=== PATIENT | male | born 1950 | race Caucasian/White ===

== ENCOUNTER 2020-06-01 05:40 | Day surgery (SDC) | payer MEDICARE ==
[~2020-06-01] VITALS: Ht 177.8 cm; Wt 65.0 kg
[2020-06-01 06:08] VITALS: BP 118/76
[2020-06-01] MEDS ORDERED: CHLORHEXIDINE 15 ML UDC MM STA (06:10)
[2020-06-01] MEDS ORDERED: LACTATED RINGERS 1,000 ML IV SCH (06:11)
[2020-06-01] MEDS ORDERED: CHLORHEXIDINE 15 ML UDC ONE (06:16)
[2020-06-01] MEDS ORDERED: NO MEDS (06:33)
[2020-06-01] MEDS ORDERED: LIDOCAINE 1%, 20ML ONE (06:49)
[2020-06-01] MEDS ORDERED: BUPIVACAINE/PF 0.5% ONE ×2 (06:49→06:52)
[2020-06-01] MEDS ORDERED: MIDAZOLAM 1 MG/ML, 2ML ONE (07:22)
[2020-06-01] MEDS ORDERED: FENTANYL PF 100 MCG/2ML ONE (07:22)
[2020-06-01] MEDS ORDERED: ONDANSETRON 2MG/ML, 2ML ONE (07:40)
[2020-06-01] MEDS ORDERED: KETOROLAC 30 MG/1 ML ONE (07:40)
[2020-06-01] MEDS ORDERED: LIDOCAINE-MPF 2% ,5ML ONE (07:40)
[2020-06-01] MEDS ORDERED: DEXAMETHASONE 4 MG/ML, 1ML ONE (07:40)
[2020-06-01] MEDS ORDERED: CEFAZOLIN 1,000 MG ONE (07:40)
[2020-06-01] MEDS ORDERED: PROPOFOL 10 MG/ML, 20ML ONE (07:40)
[2020-06-01] MEDS ORDERED: MIDAZOLAM 1 MG/ML, 2ML IV PRN (08:00)
[2020-06-01] MEDS ORDERED: ALBUTEROL SULFATE 2.5 MG/3 ML NPPB PRN (08:00)
[2020-06-01] MEDS ORDERED: FENTANYL PF 100 MCG/2ML IV PRN (08:00)
[2020-06-01] MEDS ORDERED: PROMETHAZINE 25 MG/ML, 1ML IVPush PRN (08:00)
[2020-06-01] MEDS ORDERED: ACETAMINOPHEN 325 MG TABLET PO PRN (08:00)
[2020-06-01] MEDS ORDERED: MEPERIDINE/PF 25MG/0.5ML IVPush PRN (08:00)
[2020-06-01] MEDS ORDERED: hydrALAzine 20 MG/ML, 1ML IV PRN (08:00)
[2020-06-01] MEDS ORDERED: LABETALOL 5MG/ML, 20ML IV PRN (08:00)
[2020-06-01] MEDS ORDERED: OXYcodone 5 MG/5 ML ORAL.SOL UDC PO PRN (08:00)
== END 2020-06-01 09:15 | disposition home or self-care (01) ==
LOC: OUT 05:40
PROVIDERS: ATTEND Surgery Surgery of the Hand
DX: M67.432 Ganglion, left wrist (principal); G97.49 Accidental puncture and laceration of other nervous system organ or structure during other procedure; F17.210 Nicotine dependence, cigarettes, uncomplicated; Z79.1 Long term (current) use of non-steroidal anti-inflammatories (NSAID); Z79.899 Other long term (current) drug therapy; Z85.828 Personal history of other malignant neoplasm of skin; Z88.0 Allergy status to penicillin; Z88.5 Allergy status to narcotic agent; Y83.8 Other surgical procedures as the cause of abnormal reaction of the patient, or of later complication, without mention of misadventure at the time of the procedure
CPT/HCPCS: 25111; 93005; J0690; J1100; J1885; J2250; J2405; J2704; J3010; J7120